=== PATIENT | male | born 1970 | race Caucasian/White ===

== ENCOUNTER 2017-03-01 08:28 | Day surgery (SDC) | payer BC ==
[~2017-03-01 08:28] MED LIST: Lactated Ringers 1,000 ML IV SCH; ceFAZolin 1 GM in Premix Bag 1 BAG IV ONE
[2017-03-01] MEDS ORDERED: fentaNYL 100 MCG/2 ML SDV IVPUSH PRN (10:08)
--- NOTE | 2017-03-01 10:23 | PCM.PREANE ---
Preanesthetic Assessment - Procedure Proposed Procedure: Cystoureteroscopy for kidney stone removal - Anesthesia/Transfusion/Family Hx Anesthesia History: Prior Anesthesia Without Reaction Family History of Anesthesia Reaction: No Transfusion History: No Prior Transfusion(s) Intubation History: Unknown - Review of Systems General: No Symptoms, Other (Obesity) Pulmonary: Other (smoker and Chewer) Gastrointestinal: No symptoms Neurological: No Symptoms Other: Reports: None - Physical Assessment NPO Status Date: 02/28/17 NPO Status Time: 22:00 O2 Sat by Pulse Oximetry: 96 Respiratory Rate: 16 Vital Signs: Last Vital Signs Temp 97.0 F 03/01/17 08:47 Pulse 66 03/01/17 08:47 Resp 16 03/01/17 08:47 BP 134/89 03/01/17 08:47 Pulse Ox 96 03/01/17 08:47 Height: 5 ft 8 in Weight: 224 lb ASA Class: 2 Mental Status: Alert & Oriented x3 Airway Class: Mallampati = 2 Dentition: Reports: Normal Dentition Thyro-Mental Finger Breadths: 3 Mouth Opening Finger Breadths: 3 ROM/Head Extension: Full Lungs: Clear to auscultation, Normal respiratory effort Cardiovascular: Regular Rate, Regular Rhythm, No Murmurs - Allergies Allergies/Adverse Reactions: Allergies Allergy/AdvReac Type Severity Reaction Status Date / Time No Known Allergies Allergy Verified 07/16/16 11:32 - Blood Blood Available: No Product(s) Available: None - Anesthesia Plan Pre-Op Medication Ordered: None - Acknowledgements Anesthesia Type Planned: General Anesthesia (LMA) Pt an Appropriate Candidate for the Planned Anesthesia: Yes Alternatives and Risks of Anesthesia Discussed w Pt/Guardian: Yes Pt/Guardian Understands and Agrees with Anesthesia Plan: Yes PreAnesthesia Questionnaire Genitourinary History: Reports: Renal Calculus Musculoskeletal History: Reports: Fracture Other Musculoskeletal History: hx fx collarbone Endocrine/Metabolic History: Reports: Obesity/BMI 30+ - Past Surgical History Head Surgeries/Procedures: Reports: None HEENT Surgical History: Reports: Cataract Surgery - SUBSTANCE USE Smoking Status *Q: Never Smoker Tobacco Use Within Last Twelve Months: Snuff/Dip Days Per Week of Alcohol Use: 7 Number of Drinks Per Day: 4 Total Drinks Per Week: 28 Recreational Drug Use History: No - HOME MEDS Home Medications: Home Meds Hydrocodone/Acetaminophen [Hydrocodon-Acetaminophen 5-325] 1 tab PO ASDIRECTED PRN 03/01/17 [History] Tamsulosin HCl [Flomax] 1 tab PO ASDIRECTED 03/01/17 [History] - CURRENT (IN HOUSE) MEDS Current Meds: Current Medications Fentanyl (Sublimaze) 50 - 100 mcg IVPUSH Q5M PRN PRN Reason: Pain Stop: 03/01/17 12:09 Lactated Ringer's (Ringers, Lactated) 1,000 mls @ 100 mls/hr IV ASDIRECTED [facility] Last Admin: 03/01/17 08:48 Dose: 100 mls/hr Discontinued Medications Cefazolin Sodium/Dextrose 1 gm (/ Premix) 50 mls @ 100 mls/hr IV ONETIME ONE Stop: 03/01/17 00:30
[2017-03-01] MEDS ORDERED: fentaNYL 100 MCG/2 ML SDV IV ONE (12:00)
[2017-03-01] MEDS ORDERED: Midazolam 1 MG/ML 2 ML SDV IV ONE (12:00)
[2017-03-01] MEDS ORDERED: ceFAZolin 1 GM Vial IV ONE (12:00)
[2017-03-01] MEDS ORDERED: Propofol 200 MG/20 ML SDV IV ONE (12:00)
[2017-03-01] MEDS ORDERED: Lidocaine 2% 5 ML SDV INJECT ONE (12:00)
[2017-03-01] MEDS ORDERED: Iopamidol 408 MG/ML 50 ML SDV ONE (12:21)
--- NOTE | 2017-03-01 13:27 | PCM.POSTAN ---
POST ANESTHESIA ASSESSMENT - MENTAL STATUS Mental Status: alert, oriented - RESPIRATORY Respiratory Status: respiratory rate WNL, airway patent, O2 saturation stable - CARDIOVASCULAR CV Status: pulse rate WNL, blood pressure stable - GASTROINTESTINAL GI Status: no symptoms - POST OP HYDRATION Hydration Status: adequate & stable
--- NOTE | 2017-03-01 13:28 | PCM48HPAN ---
Post Anesthesia Note - EVALUATION WITHIN 48HRS OF ANESTHETIC Vital Signs in Normal Range: Yes Patient Participated in Evaluation: Yes Respiratory Function Stable: Yes Airway Patent: Yes Cardiovascular Function Stable: Yes Hydration Status Stable: Yes Pain Control Satisfactory: Yes Nausea and Vomiting Control Satisfactory: Yes Mental Status Recovered: Yes - COMMENTS/OBSERVATIONS Free Text/Narrative:: Out of bed and ready to be accompanied home by parents.
[2017-03-01 13:32] VITALS: BP 122/70
--- NOTE | 2017-03-01 16:59 | CR ---
EXAMINATION: Cystoscopy HISTORY: Surgery COMPARISON: Radiograph dated 02/28/2017 TECHNIQUE: Single view FINDINGS/IMPRESSION: An operative control film demonstrates a right pigtail catheter with tip projec ting over the right renal collecting system.
--- NOTE | 2017-03-24 01:47 | OR ---
SURGEON: Felecia Segovia M.D. DATE OF PROCEDURE: 03/01/2017 PREOPERATIVE DIAGNOSIS: Right lower ureteral stone. POSTOPERATIVE DIAGNOSE: Right lower ureteral stone. OPERATION: Right ureteroscopy, stone removal, and stent placement. DESCRIPTION OF PROCEDURE: The patient is given general anesthesia, placed in dorsal lithotomy position, prepped and draped in sterile drapes. The lower ureter was dilated in the usual manner using the UroMax II balloon dilator to approximately 15-Italian. The [employer] rigid ureteroscope was advanced in the right lower ureter. The stone was grasped and removed. With that done, the procedure was terminated after a 6- Italian 26 centimeter double-J stent was placed, which was done under fluoroscopy. The bladder was emptied. The string at the end of the stent was taped to the outside of the penis. The patient tolerated the procedure well and was moved to recovery room in good condition. He is instructed to remove the stent by pulling the string out in one week. CHRISTINE / BA /[id number]
== END 2017-03-01 13:33 | disposition home or self-care (01) ==
LOC: MW.SDS 08:28
PROVIDERS: ATTEND Urology
PROC: 0TC68ZZ Extirpation of Matter from Right Ureter, Via Natural or Artificial Opening Endoscopic (ICD-10-PCS; principal; 2017-03-01)
DX: N20.1 Calculus of ureter (principal); Z88.5 Allergy status to narcotic agent; F17.290 Nicotine dependence, other tobacco product, uncomplicated; R63.4 Abnormal weight loss; R42 Dizziness and giddiness
CPT/HCPCS: 52352; 76000; 88300; C1769; C2625; J0690; J2250; J3010; J7120; Q9966; 00918; J2704

== ENCOUNTER 2019-12-24 14:25 | Emergency (ER) | payer BC ==
--- NOTE | 2019-12-24 15:11 | EDM.PDOC ---
ED HPI GENERAL MEDICAL PROBLEM - General Chief Complaint: Laceration Stated Complaint: WOOD IN INDEX FINGER RT Time Seen by Provider: 12/24/19 14:27 Source of Information: Reports: Patient History Limitations: Reports: No Limitations - History of Present Illness INITIAL COMMENTS - FREE TEXT/NARRATIVE: HISTORY AND PHYSICAL: History of present illness: Patient is a 49-year-old male who presents to the ED today with concern of foreign body stuck to his right hand just before coming to the ED. Patient states he was cutting a piece of [place] wood on a table saw when a splinter kicked back and went through his pointer finger and stuck into his middle finger. Patient states he initially tried to pull these out on his own but was unable to so came to the ED. Patient states he is up-to-date on his tetanus within 5 years. Patient denies any other symptoms or concerns. Patient denies fever, chills, chest pain, shortness of breath, or cough. Denies headache, neck stiff ness, change in vision, syncope, or near syncope. Denies nausea, vomiting, abdominal pain, diarrhea, constipation, or dysuria. Has not noted any blood in urine or stool. Patient has been eating and drinking appropriately. Review of systems: As per history of present illness and below otherwise all systems reviewed and negative. Past medical history: As per history of present illness and as reviewed below otherwise noncontributory. Surgical history: As per history of present illness and as reviewed below otherwise noncontributory. Social history: See social history for further information Family history: As per history of present illness and as reviewed below otherwise noncontributory. Physical exam: General: Patient is alert, oriented, and in no acute distress. Patient sitting comfortably on exam table. HEENT: Atraumatic, normocephalic, pupils equal and reactive bilaterally, negative for conjunctival pallor or scleral icterus, mucous membranes moist, TMs normal bilaterally, throat clear, neck supple, nontender, trachea midline. No drooling or trismus noted. No meningeal signs. No hot potato voice noted. Lungs: Clear to auscultation, breath sounds equal bilaterally, chest nontender. Heart: S1S2, regular rate and rhythm without overt murmur Abdomen: Soft, nondistended, nontender. Negative for masses or hepatosplenomegaly. Negative for costovertebral tenderness. Pelvis: Stable nontender. Genitourinary: Deferred. Rectal: Deferred. Skin: Intact, warm, dry. No lesions or rashes noted. Extremities: There is a 4cm wooden splinter that pierced thorough the dorsum base of the 2nd digit of the right hand and into the dorsum base of the 3rd digit. There is also a smaller splinter just distal to the larger splinter of 2nd digit. Patient does have full ROM of all digits without deficit. Radial pulse grossly intact with capillary refill <2 seconds. Otherwise, atraumatic, negative for cords or calf pain. Neurovascular unremarkable. Neuro: Awake, alert, oriented. Cranial nerves II through XII unremarkable. Cerebellum unremarkable. Motor and sensory unremarkable throughout. Exam nonfocal. Notes: I did call and speak to Dr. Quevedo, hand specialist at [facility], and thoroughly discussed patients case. Dr. Quevedo states to remove the wooden splinters after initial hand XR performed, after removal of splinter, repeat hand XR and to irrigate/disinfect. He states to pack with iodoform and leave open and discharge on PO Keflex. Dr. Quevedo states he will see patient tomorrow in his clinic for follow up and to have patient call in the AM to establish an appointment time. Discussed the importance for follow up with the hand specialist. Voices understanding and is agreeable to plan of care. Denies any further questions or concerns at this time. Diagnostics: Hand XR Therapeutics: Lidocaine/Bupivacaine, iodoform Prescription: Keflex Impression: Foreign body, right hand, removed Plan: 1. Keep the area clean and dry. Continue to monitor for signs of infection as discussed. Take mediation as prescribed. 2. Tylenol and/or ibuprofen as directed and as needed for pain management and discomfort. 3. Please follow-up with the hand specialist tomorrow as discussed. Call his clinic in the morning to establish an appointment time. The phone number and address is provided above for you. 4. Return to the ED as needed and as discussed. Definitive disposition and diagnosis as appropriate pending reevaluation and review of above. right index & middle finger Pain Score (Numeric/FACES): 6 - Related Data Allergies Allergy/AdvReac Type Severity Reaction Status Date / Time morphine Allergy Itching Verified 12/24/19 15:01 Home Meds: Home Meds cephALEXin [Keflex] 500 mg PO Q8H 7 Days #21 cap 12/24/19 [Rx] Past Medical History HEENT History: Reports: None Cardiovascular History: Reports: None Respiratory History: Reports: None Gastrointestinal History: Reports: None Genitourinary History: Reports: Renal Calculus Musculoskeletal History: Reports: Fracture Other Musculoskeletal History: hx fx collarbone Neurological History: Reports: None Psychiatric History: Reports: None Endocrine/Metabolic History: Reports: Obesity/BMI 30+ Hematologic History: Reports: None Immunologic History: Reports: None Oncologic (Cancer) History: Reports: None Dermatologic History: Reports: None - Past Surgical History Head Surgeries/Procedures: Reports: None HEENT Surgical History: Reports: Cataract Surgery Cardiovascular Surgical History: Reports: None Respiratory Surgical History: Reports: None GI Surgical History: Reports: None Male Surgical History: Reports: Kidney Stone Extraction Endocrine Surgical History: Reports: None Neurological Surgical History: Reports: None Musculoskeletal Surgical History: Reports: None Oncologic Surgical History: Reports: None Dermatological Surgical History: Reports: None Social & Family History - Family History Family Medical History: Noncontributory - Tobacco Use Smoking Status *Q: Current Status Unknown Years of Tobacco use: 20 Packs/Tins Daily: 0.5 - Recreational Drug Use Recreational Drug Use: No ED ROS GENERAL - Review of Systems Review Of Systems: Comprehensive ROS is negative, except as noted in HPI. ED EXAM, SKIN/RASH Exam: See Below (see dictation) ED SKIN PROCEDURES - Foreign Body Removal Indication:: wooden splinter to right hand, digits 2 and 3 Consent Obtained:: Patient Performing Doctor:: Mari Prescott Foreign Body Other Location Comment:: right hand; digits 2 and 3 Anesthesia Type: Regional (digital block) Findings:: 4 cm x 0.5cm wooden splinter Complications:: No Course - Vital Signs Last Recorded V/S: Last Vital Signs Temp 97 F 12/24/19 17:19 Pulse 88 12/24/19 17:19 Resp 17 12/24/19 17:19 BP 174/105 H 12/24/19 17:19 Pulse Ox 98 12/24/19 17:19 - Orders/Labs/Meds Meds: Medications Discontinued Medications Generic Name Dose Route Start Last Admin Trade Name Freq PRN Reason Stop Dose Admin Bupivacaine HCl 10 ml 12/24/19 15:58 12/24/19 16:42 Sensorcaine-Mpf 0.5% INJECT 12/24/19 15:59 10 ml ONETIME ONE Administration Lidocaine HCl 10 ml 12/24/19 15:58 12/24/19 16:42 Xylocaine-Mpf 1% INJECT 12/24/19 15:59 10 ml ONETIME ONE Administration Departure - Departure Time of Disposition: 17:05 Disposition: Home, Self-Care 01 Clinical Impression: Foreign body in hand Qualifiers: Encounter type: initial encounter Laterality: right Qualified Code(s): S60.551A - Superficial foreign body of right hand, initial encounter - Discharge Information Prescriptions: cephALEXin [Keflex] 500 mg PO Q8H 7 Days #21 cap Instructions: Hand or Foot Foreign Body, Adult Referrals: Kvng Franco MD [Primary Care Provider] - Forms: ED Department Discharge Additional Instructions: The following information is given to patients seen in the emergency department who are being discharged to home. This information is to outline your options for follow-up care. We provide all patients seen in our emergency department with a follow-up referral. The need for follow-up, as well as the timing and circumstances, are variable depending upon the specifics of your emergency department visit. If you don't have a primary care physician on staff, we will provide you with a referral. We always advise you to contact your personal physician following an emergency department visit to inform them of the circumstance of the visit and for follow-up with them and/or the need for any referrals to a consulting specialist. The emergency department will also refer you to a specialist when appropriate. This referral assures that you have the opportunity for follow-up care with a specialist. All of these measure are taken in an effort to provide you with optimal care, which includes your follow-up. Under all circumstances we always encourage you to contact your private physician who remains a resource for coordinating your care. When calling for follow-up care, please make the office aware that this follow-up is from your recent emergency room visit. If for any reason you are refused follow-up, please contact the [facility] Emergency Department at and asked to speak to the emergency department charge nurse. [facility] [address] [place] [address] [id number] [facility] [address] [place] [address] Hand and Wrist Surgery, Dr. Sandy MD [facility] [place] [address], 3rd floor 1. Keep the area clean and dry. Continue to monitor for signs of infection as discussed. Take mediation as prescribed. 2. Tylenol and/or ibuprofen as directed and as needed for pain management and discomfort. 3. Please follow-up with the hand specialist tomorrow as discussed. Call his clinic in the morning to establish an appointment time. The phone number and address is provided above for you. 4. Return to the ED as needed and as discussed. Sepsis Event Note - Evaluation Sepsis Screening Result: No Definite Risk - Focused Exam Vital Signs: Vital Signs Temp Pulse Resp BP Pulse Ox 12/24/19 17:19 97 F 88 17 174/105 H 98 12/24/19 14:56 96.6 F L 118 H 16 171/113 H 94 L Date Exam was Performed: 12/24/19 Time Exam was Performed: 18:02
[2019-12-24] MEDS ORDERED: Bupivacaine 0.5% 10 ML SDV INJECT ONE (15:58)
--- NOTE | 2019-12-24 16:04 | CR ---
Right hand: 3 views of the right hand were obtained. Comparison: Prior right hand study of 07/16/16. No fracture, dislocation or other bony abnormality is appreciated. Linear opacity is seen projecting outside the 2nd digit. Please correlate if this represents foreign body that extends into the finger or represents artifact. Impression: 1. Questionable foreign body as noted above. 2. No acute bony abnormality is definitely appreciated on 3 view right hand exam. Diagnostic code #3 This report was dictated in MDT
--- NOTE | 2019-12-24 16:56 | CR ---
Right hand: 3 views of the right hand were obtained. Comparison: Previous right hand study performed earlier on the same day. Previously questioned foreign body is no longer seen compatible with removal. No residual foreign body is seen. Small amount of soft tissue air is seen. No acute fracture or other bony abnormality is seen. Impression: 1. Foreign body has been removed. 2. Small amount of soft tissue air. 3. No bony abnormality is appreciated. Diagnostic code #2 This report was dictated in MDT
[2019-12-24 17:39] VITALS: BP 174/105; PULSE 88
== END 2019-12-24 17:20 | disposition home or self-care (01) ==
LOC: MW.ED 14:25
DX: S60.551A Superficial foreign body of right hand, initial encounter (principal); E66.9 Obesity, unspecified; Z68.36 Body mass index [BMI] 36.0-36.9, adult; F17.210 Nicotine dependence, cigarettes, uncomplicated; Z88.5 Allergy status to narcotic agent; W45.8XXA Other foreign body or object entering through skin, initial encounter
CPT/HCPCS: 64450; 73130; 99283; J2001; J3490; 10120; 99282